=== PATIENT | male | born 1940 | race Caucasian/White ===

== ENCOUNTER → 2016-08-11 | Outpatient (CLI) | payer MEDICARE, OTHER ==
[~2016-08-11] MED LIST: ACET125T2 PO; ALBU18HF INH; ASPI-496 PO; ATEN50TA41 PO; CHOL10002 PO; DABI150C PO; ESOM40CA PO; FENO145T32 PO; FLUT100D INH; JARDIANCE; OMEG1CAP2 PO; OXYC10TA6 PO; SIMV40TA3 PO; TROS60CA3 PO; UBID50TA3 PO
== END | disposition home or self-care (01) ==
LOC: RAD 08-09 11:59
PROVIDERS: ATTEND Internal Medicine Cardiovascular Disease
DX: J98.4 Other disorders of lung (principal); I51.7 Cardiomegaly; Z95.0 Presence of cardiac pacemaker
CPT/HCPCS: 71010; 78582; A9540; A9558

== ENCOUNTER 2016-09-20 08:57 | Day surgery (SDC) | payer MEDICARE, OTHER ==
[2016-09-18 10:32] VITALS: BP 117/77
[2016-09-18 11:19] LABS: BLOOD UREA NITROGEN 25 mg/dL (7-18)
[2016-09-18 11:23] LABS: ASPARTATE AMINO TRANSFERASE 39 U/L (15-37)
[~2016-09-20] VITALS: Ht 177.8 cm; Wt 104.5 kg
[~2016-09-20 08:57] MED LIST changes: +ATOR80TA75 PO; +CARV6.252 PO; +CHOL200024 PO; +FURO20TA3 PO; +LISI5TAB7 PO; +SPIR25TA3 PO
[2016-09-20] MEDS ORDERED: NITROGLYCERIN 5 MG/ML, 10ML ONE (10:37)
[2016-09-20] MEDS ORDERED: FENTANYL PF 100 MCG/2ML ONE (10:37)
[2016-09-20] MEDS ORDERED: VERAPAMIL 2.5 MG/ML, 2ML ONE (10:37)
[2016-09-20] MEDS ORDERED: HEPARIN 1,000 UNITS/ML, 10ML ONE (10:37)
[2016-09-20] MEDS ORDERED: MIDAZOLAM 1 MG/ML, 5ML ONE (10:37)
[2016-09-20] MEDS ORDERED: LIDOCAINE 2%, 20ML ONE (10:37)
== END 2016-09-20 15:14 ==
LOC: CACL 08:57
PROVIDERS: ATTEND Internal Medicine Cardiovascular Disease
DX: I25.10 Atherosclerotic heart disease of native coronary artery without angina pectoris (principal); I27.2 Other secondary pulmonary hypertension; G47.30 Sleep apnea, unspecified; Z72.89 Other problems related to lifestyle
CPT/HCPCS: 36415; 80053; 85025; 85610; 85730; 93461; 99156; 99157; C1769; C1894; J1644; J2250; J3010; J3490; Q9967

== ENCOUNTER 2018-12-30 07:40 | Outpatient (CLI) | payer MEDICARE, OTHER ==
[~2018-12-30 07:40] MED LIST changes: +ATOR-2 PO; -ATOR80TA75 PO; -SPIR25TA3 PO; +SPIR25TA5 PO
== END 2018-12-30 23:59 | disposition home or self-care (01) ==
LOC: CVU 07:40
PROVIDERS: ATTEND Physician Assistant
DX: I08.8 Other rheumatic multiple valve diseases (principal); I48.20 Chronic atrial fibrillation, unspecified; Z95.0 Presence of cardiac pacemaker; I10 Essential (primary) hypertension; E78.5 Hyperlipidemia, unspecified
CPT/HCPCS: 93306

== ENCOUNTER → 2019-01-16 | Outpatient (CLI) | payer MEDICARE, OTHER | END | disposition home or self-care (01) | LOC: CARD 12:14 | PROVIDERS: ATTEND Internal Medicine Cardiovascular Disease | DX: J44.9 Chronic obstructive pulmonary disease, unspecified (principal); E11.9 Type 2 diabetes mellitus without complications; I50.9 Heart failure, unspecified; Z82.49 Family history of ischemic heart disease and other diseases of the circulatory system | CPT/HCPCS: 94060; 94726; 94729 ==

== ENCOUNTER 2019-02-04 07:14 | Outpatient (CLI) | payer MEDICARE, OTHER ==
[2019-02-04] MEDS ORDERED: REGADENOSON 0.4 MG/5 ML SYRINGE ONE (07:23)
== END 2019-02-04 23:59 | disposition home or self-care (01) ==
LOC: CFH 07:14
PROVIDERS: ATTEND Internal Medicine Cardiovascular Disease
DX: I48.91 Unspecified atrial fibrillation (principal)
CPT/HCPCS: 78452; 93017; A9502; J2785